=== PATIENT | female | born 1995 | race Two or more races ===

== ENCOUNTER 2024-12-06 01:36 | Inpatient (IN) | payer MEDICAID ==
[~2024-12-06] VITALS: Ht 152.4 cm; Wt 48.5 kg
[2024-12-06] MEDS ORDERED: ZOLPIDEM TARTRATE 10 MG TABLET PO PRN (02:45)
[2024-12-06] MEDS ORDERED: HALOPERIDOL 5 MG TABLET PO PRN (02:45)
[2024-12-06 05:51] VITALS: BP 120/60; PULSE 72; RESP 16; TEMP 97.7; O2SAT 96
[2024-12-06 08:07] LABS: BASOPHILS % (AUTO) 0.4 % (0.0-2.0); EOSINOPHILS % (AUTO) 1.7 % (1.0-6.0); HEMATOCRIT 35.9 % (36-46); HEMOGLOBIN 11.6 g/dL (12.0-16.0); LYMPHOCYTES # (AUTO) 1.9 K/uL (1.0-4.8); LYMPHOCYTES % (AUTO) 27.4 % (22.0-44.0); MEAN CORPUSCULAR HEMOGLOBIN 26.9 pg (26.0-34.0); MEAN CORPUSCULAR HGB CONC 32.3 G/dL (31.0-37.0); MEAN CORPUSCULAR VOLUME 83 fL (80-100); MONOCYTES # (AUTO) 0.7 K/uL (0.1-1.0); MONOCYTES % (AUTO) 9.5 % (2.0-9.0); NEUTROPHILS # (AUTO) 4.2 K/uL (1.8-7.7); PLATELET COUNT (AUTO) 366 K/uL (150-450); RED BLOOD CELL COUNT(AUTO) 4.31 MIL/uL (4.00-5.20); RED CELL DISTRIBUTION WIDTH 16.6 % (11.5-14.5)
[2024-12-06 08:15] LABS: HEMOGLOBIN A1C 5.2 % (3.8-5.6)
[2024-12-06 08:36] LABS: ALANINE AMINOTRANSFERASE 42 U/L (12-78); ALBUMIN 3.4 g/dL (3.4-5.0); ALKALINE PHOSPHATASE 70 U/L (46-116); ANION GAP 8 mmol/L (8-16); ASPARTATE AMINOTRANSFERASE 21 U/L (15-37); BILIRUBIN,TOTAL 0.5 mg/dL (0.1-1.0); CALCIUM, TOTAL 8.3 mg/dL (8.8-10.5); CARBON DIOXIDE 27 mmol/L (22-29); CHLORIDE 105 mmol/L (98-107); CREATININE 0.52 mg/dL (0.60-1.30); FREE T4 (FREE THYROXINE) 0.94 ng/dL (0.76-1.46); GLOMERULAR FILTR. RATE CALC > 60 mL/min (>60); GLUCOSE,RANDOM 85 mg/dL (70-110); HCG,QUANTITATIVE 1 mIU/mL (0-6); SODIUM SERUM 140 mmol/L (136-145); TOTAL PROTEIN, SERUM 6.4 g/dL (6.4-8.2); UREA NITROGEN, BLOOD 16 mg/dL (7-18)
[2024-12-06 09:07] VITALS: BP 122/68; PULSE 76; RESP 16; TEMP 98.2; O2SAT 97
[2024-12-06] MEDS ORDERED: ACETAMINOPHEN 325 MG TABLET PO PRN (14:45)
[2024-12-06] MEDS ORDERED: MAGNESIUM HYDROXIDE SUSPENSION 30 ML UDCUP PO PRN (14:45)
[2024-12-06] MEDS ORDERED: MAG HYDROX/ALUMINUM HYD/SIMETH ES 30 ML SUSPENSION UDCUP PO PRN (14:45)
[2024-12-06] MEDS ORDERED: ALBUTEROL SULFATE HFA 90 MCG/PUFF 8 GM INHALER IH PRN (14:45)
[2024-12-06] MEDS ORDERED: NICOTINE 14 MG/24 HOUR PATCH TD PRN (14:45)
[2024-12-06] MEDS ORDERED: ONDANSETRON 4 MG TABLET PO PRN (14:45)
[2024-12-06] MEDS ORDERED: IBUPROFEN 400 MG TABLET PO PRN (14:45)
[2024-12-06] MEDS ORDERED: GuaiFENesin/D-METHORPHAN [SUGAR-FREE] 200-20MG/10 ML SYRUP UDCUP PO PRN (14:45)
[2024-12-06] MEDS ORDERED: CloNIDine HCL 0.1 MG TABLET PO PRN (14:45)
[2024-12-06] MEDS ORDERED: DOCUSATE SODIUM 100 MG CAPSULE PO PRN (14:45)
[2024-12-06] MEDS ORDERED: LOPERAMIDE HCL 2 MG CAPSULE PO PRN (14:45)
[2024-12-06] MEDS ORDERED: PETROLATUM,WHITE 28 GM JELLY TP PRN (14:45)
[2024-12-06] MEDS: LORazepam 1 MG TABLET PO PRN (20:35)
[2024-12-07 08:30] VITALS: BP 122/76; PULSE 79; RESP 17; TEMP 98; O2SAT 98
[2024-12-07 08:45] LABS: CHOL/HDL RATIO 2.5 (3.9-5.7); THYROID STIMULATING HORMONE 0.83 uIU/mL (0.36-3.74)
[2024-12-07 20:17] VITALS: BP 115/72; PULSE 98; RESP 16; TEMP 97.3; O2SAT 98
[2024-12-08 08:31] VITALS: BP 112/58; PULSE 82; RESP 16; TEMP 97.9; O2SAT 98
[2024-12-08 21:10] VITALS: BP 114/72; PULSE 80; RESP 16; TEMP 97.6; O2SAT 98
[2024-12-09 08:19] VITALS: BP 129/73; PULSE 110; RESP 18; TEMP 97.6; O2SAT 97
[2024-12-09 11:14] VITALS: PULSE 83
== END 2024-12-09 15:45 | disposition home or self-care (01) | DRG 751 ==
LOC: B3A 02:42
PROVIDERS: ADMIT Psychiatry & Neurology Psychiatry; ATTEND Psychiatry & Neurology Psychiatry
PROC: GZHZZZZ Group Psychotherapy (ICD-10-PCS; principal; 2024-12-06)
DX: F33.2 Major depressive disorder, recurrent severe without psychotic features (principal); R45.851 Suicidal ideations; D64.9 Anemia, unspecified; F19.10 Other psychoactive substance abuse, uncomplicated; F41.9 Anxiety disorder, unspecified; G47.00 Insomnia, unspecified; Z82.0 Family history of epilepsy and other diseases of the nervous system; Z91.51 Personal history of suicidal behavior
CPT/HCPCS: 80053; 80061; 83036; 84439; 84443; 84702; 85025